=== PATIENT | female | born 1955 | race African-American/Black ===

== ENCOUNTER 2019-03-31 14:21 | Day surgery (SDC) | payer OTHER ==
[~2019-03-31 14:21] MED LIST: NACL 0.9% 1000 ML 1,000 ML IV SCH
[2019-03-31] MEDS ORDERED: XYLOCAINE MPF 2% ONE (15:00)
--- NOTE | 2019-03-31 15:49 | Anesthesia Day of Surgery ---
Anesthesia Day of Surgery - Day of Surgery Patient Examined: Yes Patient H&P Reviewed: Yes Patient is NPO: Yes
--- NOTE | 2019-03-31 15:51 | Anesthesia Consultation ---
Anesthesia Consult and Med Hx Date of service: 03/31/19 - Airway Anesthetic Teeth Evaluation: Good ROM Head & Neck: Adequate Mental/Hyoid Distance: Adequate Mallampati Class: Class II Intubation Access Assessment: Probably Good - Pre-Operative Health Status ASA Pre-Surgery Classification: ASA3 Proposed Anesthetic Plan: MAC - Cardiovascular System Hx Hypertension: Yes - Gastrointestinal Hx Gastroesophageal Reflux Disease: Yes - Endocrine Hx Liver Disease: Yes (Hep B) Hx Non-Insulin Dependent Diabetes: Yes Hx Thyroid Disease: Yes - Additional Comments Anesthesia Medical History Comments: Only speaks [place]. present to interpret
[2019-03-31] MEDS ORDERED: DIPRIVAN 10 MG/ML IV ONE (16:21)
[2019-03-31] MEDS ORDERED: VERSED ONE (16:21)
--- NOTE | 2019-03-31 16:36 | Discharge Summary ---
Short Stay Discharge Plan Activity: advance as tolerated Weight Bearing Status: Weight Bear as Tolerated Diet: regular Follow up with: PRIMARY CARE, [Primary Care Provider] - 7 Days
--- NOTE | 2019-03-31 16:36 | Operative Report ---
Operative Report Operative Report: Date of procedure: 03/31/2019 Procedure: Esophagogastroduodenoscopy with multiple mucosal biopsies. Attending physician: Jericho Garcia MD Medical Laboratory Technical Officer: Jericho Garcia MD Indication: Patient is a 63 -year-old female who presented with a history of recurrent epigastric pain and indigestion and heartburn with dyspepsia early satiety patient also lately has had dysphagia. An upper endoscopy is done to assess patient, so that treatment may be directed based on the findings. Consent: Informed consent was obtained after advising the patient and family regarding nature of this procedure, its indications, potential benefits as well as possible complications including but not limited to bleeding perforation and adverse reaction to medication, infection as well as other cardiopulmonary complications. An informed written and verbal consent was then obtained after due opportunity was provided for questions and answers. Monitoring: Patient was monitored continuously with pulse oximetry and electrocardiographic recordings as well as blood pressure recordings. Vital signs remained stable throughout this procedure with no untoward events. Preoperative assessment: Patient was assessed immediately prior to this procedure for capacity to tolerate monitored anesthesia care and moderate sedation as well as general anesthesia. Patient's ASA classification is 3, Mallampati class is 2, Hyomental distance is 3. Instrument: Olympus video endoscope: [id number] Medications: Propofol given intravenously in divided doses. For details please refer to anesthesia records. Description of procedure: Patient was placed in the left lateral decubitus position after achieving sedation, the endoscope was introduced into the esophagus under direct vision. It was then advanced beyond the esophagus into the gastric stump and then beyond the stomach into the jejunum. It was subsequently withdrawn with careful inspection of all mucosal surfaces with the following findings. Findings: The Z line was irregular at 37 cm. There was a small sliding hiatal hernia seen on entry into the stomach. There was erythema in the gastric antrum. Biopsies were obtained from the gastric antrum for histopathology. The duodenum was normal to second portion. Impression: Irregular Z line Hiatal hernia Gastric antral erythema Plan: Continue treatment with proton pump inhibitors. Follow pathology report and direct additional treatment based on the pathology report and patient's clinical response to treatment. Follow patient clinically otherwise.
[2019-03-31 17:20] VITALS: BP 138/66
== END 2019-03-31 14:22 | disposition home or self-care (01) ==
LOC: GIO 14:21
PROVIDERS: ATTEND Internal Medicine Gastroenterology
DX: K30 Functional dyspepsia (principal); K44.9 Diaphragmatic hernia without obstruction or gangrene; I10 Essential (primary) hypertension; K21.9 Gastro-esophageal reflux disease without esophagitis; M19.90 Unspecified osteoarthritis, unspecified site; E11.9 Type 2 diabetes mellitus without complications; Z79.899 Other long term (current) drug therapy; Z79.84 Long term (current) use of oral hypoglycemic drugs
CPT/HCPCS: 43239; 82962; 88305; 88342; J2250; J2704; J7030